=== PATIENT | male | born 1980 ===

== ENCOUNTER 2024-03-16 18:27 | Emergency (ER) | payer BC ==
[2024-03-16] MEDS: Lidocaine 1% 5 ML VIAL INFILT ONE (18:40)
[2024-03-16] MEDS: Diphtheria,Pertussis(Acell),Tetanus Vaccine 0.5 ML Syringe IM ONE (19:15)
== END 2024-03-16 19:09 | disposition home or self-care (01) ==
LOC: LB.ED 18:27
DX: S61.012A Laceration without foreign body of left thumb without damage to nail, initial encounter (principal); Z23 Encounter for immunization; W26.0XXA Contact with knife, initial encounter
CPT/HCPCS: 12002; 90471; 90715; 99282-25; 99283